=== PATIENT | male | born 1980 | race Two or more races ===

== ENCOUNTER → 2016-08-06 | Outpatient (CLI) | payer OTHER ==
--- NOTE | 2016-08-07 08:59 | REP ---
LEFT FOREARM, TWO VIEWS: HISTORY: Injury. There is no acute fracture or dislocation. The joint spaces are normal in appearance. IMPRESSION: There is no acute fracture or dislocation. Signed by Tree Quintero MD 08/07/2016 09:22 A
--- NOTE | 2016-08-07 09:10 | REP ---
LEFT WRIST, FOUR VIEWS: HISTORY: Injury. A faint lucency is present overlying the pisiform and triquetrum bones. This may represent a fracture. There is no dislocation. The joint spaces are normal in appearance. A small calcified density is present in the dorsal soft tissue. This may represent ligamentous or tendon calcification. IMPRESSION: There is a faint lucency overlying the pisiform and triquetrum bones seen in only one view. This may represent a fracture. Signed by Tree Quintero MD 08/07/2016 09:22 A
== END ==
LOC: M LRY 15:34
PROVIDERS: ATTEND Nurse Practitioner Family
DX: S69.92XA Unspecified injury of left wrist, hand and finger(s), initial encounter (principal); X58.XXXA Exposure to other specified factors, initial encounter; Y92.89 Other specified places as the place of occurrence of the external cause